=== PATIENT | female | born 1985 | race Caucasian/White ===

== ENCOUNTER 2017-01-21 07:48 | Inpatient (IN) | payer OTHER ==
[2017-01-21] MEDS ORDERED: BUTORPHANOL TARTRATE 1 MG/ML VIAL IVPB ONE (09:12)
[2017-01-21] MEDS ORDERED: SODIUM PHOSPHATE/NA BIPHOS 133 ML ENEMA PR ONE (09:14)
[2017-01-21] MEDS ORDERED: DEXTROSE 5%-LACTATED RINGERS 1,000 ML IV SCH (09:15)
[2017-01-21 09:22] LABS: BASOPHIL 0.8 % (0-2.0); EOSINOPHIL 0.8 % (0-4.5); MCH 31.7 pg (25.7-33.7); MCHC 34.4 g/dl (32.0-36.0); MEAN CELL VOLUME 91.9 fl (80-96); MEAN PLT VOLUME 8.7 fl (7.5-11.1); NEUTROPHILS 51.4 % (42.8-82.8); PLATELET COUNT 88 K/MM3 (134-434); RDW 15.5 % (11.6-15.6); WHITE BLOOD COUNT 4.7 K/mm3 (4.0-10.0)
[2017-01-21 09:34] LABS: INR 0.97 (0.82-1.09); PROTHROMBIN TIME (PATIENT) 10.7 SEC (9.98-11.88)
[2017-01-21 09:36] LABS: ACTIVATED PTT 31.6 SECONDS (26.9-34.4)
[2017-01-21] MEDS ORDERED: OXYTOCIN 15 UNITS/ LR 250 ML 250 ML IVPB SCH (09:50)
[2017-01-21 09:57] LABS: CALCIUM 8.7 mg/dL (8.5-10.1); CREATININE 0.7 mg/dL (0.55-1.02)
[2017-01-21 10:10] VITALS: BMI 32.7
[2017-01-21 10:12] LABS: COCKROFT - GAULT 137.5555
[2017-01-21 10:52] LABS: URIC ACID 5.5 mg/dL (2.6-7.2)
[2017-01-21 11:08] LABS: URINE APPEARANCE SLCLOUDY; URINE BILIRUBIN NEGATIVE (NEGATIVE); URINE COLOR YELLOW; URINE GLUCOSE (UA) NEGATIVE (NEGATIVE); URINE KETONE NEGATIVE (NEGATIVE); URINE LEUK ESTERASE NEGATIVE (NEGATIVE); URINE NITRITE NEGATIVE (NEGATIVE); URINE UROBILINOGEN NEGATIVE E.U./dl (0.2-1.0)
[2017-01-21 11:30] LABS: URINE BLOOD 3+ (NEGATIVE); URINE PROTEIN 3+ (NEGATIVE)
[2017-01-21 11:38] LABS: URINE BACTERIA RARE /hpf (NONE SEEN); URINE MUCUS RARE; URINE RBC 1 /hpf (0-3); URINE WBC 6 /hpf (3-5)
--- NOTE | 2017-01-21 12:08 | HP ---
Past Medical History - Primary Care Physician PCP:: Josiane Jin - Admission Chief Complaint: 31 yrs , 39.1 weeks admitted in early labor. onset Lp since 6.00AM History of Present Illness: PNC at 2, [facility] Wt gain 28 lbs work Up : B Pos, , Rpr nr, Hbsag neg, Rubella pos, Quantiferon neg, Gbs neg, Hiv neg, ,1 hr Gtt 94, NT screen, Modified sequential neg . .. MFM sono done for growth intial sono lo lying placenta, which resolved . 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 No: Migraine Cardiovascular: No: HTN, Murmur Pulmonary: No: Asthma Gastrointestinal: No: Gastritis Renal/: No: UTI Reproductive: No: Ectopic ...: 4 ...Para: 1 ...Term: 1 (09/10/07 7'8" ) ...: 0 ...Spon : 2 (11/19/12 & 09/10/15 1st trimester ) ...Induced : 0 ...Multiple Gestation: 0 ...LMP: 04/17/16 ... Weeks Gestation by Dates: 39.6 ...EDC by Dates: 01/22/17 ...EDC by Sono: 01/27/17 (39.1 weeks ) Heme/Onc: Yes: Anemia Infectious Disease: No: HIV, STD's Psych: No: Addictions, Bipolar, Panic Endocrine: No: Diabetes Mellitus, Hypothyroidism - Past Surgical History Past Surgical History: Yes: None Hx Myomectomy: No Hx Transabdominal Cerclage: No - Smoking History Smoking history: Never smoked Have you smoked in the past 12 months: No Aproximately how many cigarettes per day: 0 - Alcohol/Substance Use Hx Alcohol Use: No History of Substance Use: reports: None Home Medications - Allergies Allergies/Adverse Reactions: Allergies Allergy/AdvReac Type Severity Reaction Status Date / Time No Known Allergies Allergy Verified 09/10/15 07:46 - Home Medications Home Medications: Ambulatory Orders Pnv95/Iron Fum/Folic Acid [ Caplet] 1 tab PO DAILY 09/10/15 Physical Exam - Maternity Vital Signs: Vital Signs Temperature 98.9 F 01/21/17 10:00 Pulse Rate 55 L 01/21/17 10:00 Respiratory Rate 15 01/21/17 10:00 Blood Pressure 141/80 01/21/17 10:00 O2 Sat by Pulse Oximetry (%) Constitutional: Yes: Well Nourished, Calm, Mild Distress, Other (wt 162 lbs) Eyes: Yes: WNL HENT: Yes: WNL, Normocephalic Neck: Yes: WNL Cardiovascular: Yes: WNL Lungs: Clear to auscultation Breast(s): Yes: WNL - Abdominal Exam/OB Fundal Height: 40 Number of Fetuses: Single Presentation: Vertex (exam at 8.43 am) Contractions: Yes Regularity: Irregular Intensity: Mild (7-8 min) Monitor Mode: External Heart Rate (range): 150 Heart Rate Location: [facility] Category: I Accelerations: Uniform Decelerations: None - Vaginal Exam/OB Vaginal Bleediing: Bloody Show Speculum Exam: No Dilatation (cm): 3-4 Effacement (%): 80 Amniotic Membrane Status: Intact Presentation: Vertex/Position Station: -3 - Physical Exam Musculoskeletal: Yes: WNL Extremities: Yes: Delayed Capillary Refill (bilateral Varicose veins), Other Edema: Yes Edema: LLE: 1+, RLE: 1+ Deep Tendon Reflex Grade: Normal +2 ...Motor Strength: WNL Psychiatric: Yes: WNL, Alert, Oriented - Labs Lab Results: CBC, BMP 01/21/17 09:00 01/21/17 09:00 Selected Entries 01/21/17 09:54 Temperature 98.8 F Pulse Rate 57 L Blood Pressure 158/87 Blood Pressure 110 Mean Laboratory Tests 01/21/17 01/21/17 01/21/17 09:00 09:00 10:10 INR 0.97 PTT (Actin FS) 31.6 Uric Acid 5.5 GGT 21 AST 28 D ALT 19 D Urine Protein RPR Titer Nonreactive 01/21/17 10:35 INR PTT (Actin FS) Uric Acid GGT AST ALT Urine Protein 3+ H RPR Titer Problem List - Problems (1) 39 weeks gestation of Code(s): Z3A.39 - 39 WEEKS GESTATION OF (2) Labor established Code(s): [id number] - (3) Mild preeclampsia Code(s): O14.00 - MILD TO MODERATE PRE-ECLAMPSIA, UNSPECIFIED TRIMESTER Qualifiers: Trimester: third trimester Qualified Code(s): O14.03 - Mild to moderate pre-eclampsia, third trimester Assessment/Plan 31 yrs , 39.1 weeks, earky labor, noted to have mild elevation of BP, HELLP work up was drawn Proteinuria (3+),PlT count 88, ( 01/01/17 plt count 157 in the clinic ) Plan Pitocin augmentation Trial Vaginal delivery MgSo4 prn
--- NOTE | 2017-01-21 14:12 | PN ---
Progress Note, Labor Vaginal Exam #1 Labor Exam Date: 01/21/17 Labor Exam Time: 14:00 Heart Rate (range): 150 Dilatation: 7-8 Effacement (%): 90 Amniotic Membrane Status: Ruptured (AROM clear, small amount) Presentation: Vertex/Position Station: -2 Remarks: UC q 2-3 min fhr cat-1 c/o pain requests for pain meds Selected Entries 01/21/17 01/21/17 01/21/17 11:00 12:00 13:00 Pulse Rate 56 L 57 L Blood Pressure 138/80 140/82 155/81 14.00hr BP 140/79 rx stadol 2 mg iv stat given Vaginal Exam #2 Labor Exam Date: 01/21/17 Labor Exam Time: 15:20 Heart Rate (range): 120-130 Dilatation: 10cm Effacement (%): 100 Amniotic Membrane Status: Ruptured Presentation: Vertex/Position Station: +2 (+2/+3) Remarks: uc 2-3 min FHR cat-1 pt has urge to push Selected Entries 01/21/17 01/21/17 14:00 15:00 Temperature 98.3 F Pulse Rate 58 L 61 Blood Pressure 147/79 153/92
[2017-01-21] MEDS ORDERED: BENZOCAINE 28 GM HEMORRHOIDAL OINTMENT TP PRN (16:23)
[2017-01-21] MEDS ORDERED: BENZOCAINE 20% 57 GM BOTTLE TP PRN (16:23)
[2017-01-21] MEDS ORDERED: WITCH HAZEL 50% (TUCKS) 40 PAD/JAR PAD TP PRN (16:23)
[2017-01-21] MEDS ORDERED: BISACODYL 10 MG SUPP.RECT RC PRN (16:23)
[2017-01-21] MEDS ORDERED: METHYLERGONOVINE MALEATE 0.2 MG/1 ML AMP IM PRN (16:23)
[2017-01-21] MEDS ORDERED: LABETALOL HCL 200 MG TABLET (FP) PO PRN (16:29)
[2017-01-21] MEDS ORDERED: D5W-LR W/ 20 UNITS OXYTOCIN 1,000 ML IV SCH (16:30)
[2017-01-21] MEDS ORDERED: MISOPROSTOL 100 MCG TABLET NR ONE (16:45)
[2017-01-21] MEDS: oxyCODONE HCL 5 MG TABLET PO PRN ×2 (16:45→22:21)
--- NOTE | 2017-01-21 16:46 | PN ---
Delivery - Delivery Vaginal Delivery: Spontaneous (cord around neckx1.cord untangled before delivery of shoulder . after delivery of placenta , uterus atonic, Bimanual massage was given , Iv Pitocin 20 units in 1000 ml n saline continued, NC Cytotec 1000 mcg placed . bladder cathetrized 100 ml urine drained. episiotomy was sutured in layers with chr catgut #2/0 under local anesthesia. . pr exam done mucosa & sphincter was intact .) Type of Anesthesia: Local Episiotomy/Laceration: Midline EBL (cc): 500 Delivery, Single - Stages of Labor Date 1st Stage Initiatied: 01/21/17 Time 1st Stage Initiated: 06:00 Date 2nd Stage Initiated: 01/21/17 Time 2nd Stage Initiated: 15:20 Date of Delivery: 01/21/17 Time of Delivery: 15:43 Time Placenta Delivered: 15:46 Placenta: Yes: Spontaneous, Uterine Exploration - Condition of Leadite Worker/Commanding Officer Garage Present: No Infant Gender: Female Weight: 8 lb 1 oz Position: Left, OA Total Hours ROM (Hrs/Mins): - 1 Minute Total Score: 9 5 Minutes Total Score: 9 - Moyers Feeding Plan Initial Plan: Exclusive throughout hospitalization Remarks - Remarks Remarks: 31 yrs , 39.1 weeks admitted in labor .GBS neg. care at [address] [place] [address] . Pitocin Augmentation was started IV stadol 2 mg was given for labor analgesia. Mild preclempsia is diagnozed (BP 140-158 systolic, & 80-92 diastolic), urine protein 3+, Plt 88, rest of HELLP work up neg . Atonic PPH encountered Plan to give MgSo4 prophylaxis once vaginal bleeding is stable 5.00 pm ut firm, blood clot expressed out Puse 76/min, BP 132/78
[2017-01-21] MEDS ORDERED: CARBOPROST TROMETHAMINE 250 MCG/ML AMPUL IM ONE (17:50)
[2017-01-21] MEDS: CARBOPROST TROMETHAMINE 250 MCG/ML AMPUL IM ONE ×2 (17:50→20:51)
[2017-01-21] MEDS ORDERED: MAGNESIUM 4GM/H20 - 100 ML IVPB SCH (18:00)
[2017-01-21] MEDS ORDERED: BUTORPHANOL TARTRATE 1 MG/ML VIAL IVPUSH PRN (18:10)
[2017-01-21] MEDS ORDERED: MAGNESIUM SULFATE 20GM/500ML - 500 ML IVPB SCH (18:30)
[2017-01-21] MEDS: FERROUS SO4 325 MG TABLET (FP) PO SCH (18:43)
[2017-01-21] MEDS ORDERED: CARBOPROST TROMETHAMINE 250 MCG/ML AMPUL IM PRN (18:54)
[2017-01-21] MEDS ORDERED: OXYTOCIN IV ONE (19:00)
[2017-01-21] MEDS ORDERED: LACTATED RINGERS IV ONE (19:00)
[2017-01-21] MEDS ORDERED: DEXTROSE 5% IV ONE (19:00)
[2017-01-21] MEDS ORDERED: OXYTOCIN 10 UNIT/ML 10ML MDV IV SCH (19:00)
--- NOTE | 2017-01-21 19:07 | PN ---
Progress Note (short form) - Note Progress Note: 5.30 pm I was called by nurse to tell me she expressed out large blood clots twice 15 min apart, ut is becomng atonic I returned back ti L&D MEU was performed, uterus was emptied of blood clots Bimanual massage was continued . banks catheter was placed 5.50 pm IMHemabate 250 mcg was given. Uterus still was becoming atonic in between. so I made decision to insert BakrI Intrauterine balloon . preparation was made 6.10PM IVstadol 1 mg was given under ultrasound guide I attempted to insert bakri perineum cleaned with betadine sim's speculum was inserted ant lip cx was held with ring forcep, with another ring forcep Bakri balloon was advanced in uterus, upper segment was contracted I found difficult to advance balloon upto fundus .,It remained in the lower segment After multiple attempts , i decided to leave balloon in lower segment balloon was distended with 300 ml of Normal saline Vagina was packed with kerlex bakriballoon was connected to banks bag 6..30 Pm BP128/76, Pulse 82/min , O2 saturation 98% RS cta 700pm bp 120/76, pulse 70/min ut is firm upto umblicus blood only in the tubing banks out put approx [address] care in L&D Do not give MgSo4 infusion repeat stat cbc , bmp prophylactic iv Ancef x 3 doses Problem List - Problems (1) 39 weeks gestation of Code(s): Z3A.39 - 39 WEEKS GESTATION OF (2) Labor established Code(s): [id number] - (3) Mild preeclampsia Code(s): O14.00 - MILD TO MODERATE PRE-ECLAMPSIA, UNSPECIFIED TRIMESTER Qualifiers: Trimester: third trimester Qualified Code(s): O14.03 - Mild to moderate pre-eclampsia, third trimester
[2017-01-21] MEDS: CEFAZOLIN (PRE-DOCKED) 50 ML IVPB SCH (20:00)
[2017-01-21 20:23] LABS: BASOPHIL 0.2 % (0-2.0); MCH 30.5 pg (25.7-33.7); MCHC 32.9 g/dl (32.0-36.0); MEAN CELL VOLUME 92.6 fl (80-96); MEAN PLT VOLUME 9.4 fl (7.5-11.1); NEUTROPHILS 87.4 % (42.8-82.8); PLATELET COUNT 62 K/MM3 (134-434); RDW 15.9 % (11.6-15.6)
[2017-01-21 21:06] LABS: CALCIUM 7.1 mg/dL (8.5-10.1); COCKROFT - GAULT 120.36; CREATININE 0.8 mg/dL (0.55-1.02)
[2017-01-21] MEDS: ACETAMINOPHEN 325 MG TABLET (FP) PO PRN (22:21)
[2017-01-22] MEDS ORDERED: oxyCODONE HCL 5 MG TABLET PO PRN (01:21)
[2017-01-22] MEDS ORDERED: oxyCODONE HCL 5 MG TABLET PO ONE (01:30)
[2017-01-22] MEDS: CEFAZOLIN (PRE-DOCKED) 50 ML IVPB SCH ×2 (03:00→10:50)
[2017-01-22] MEDS ORDERED: D5W-LR W/ 20 UNITS OXYTOCIN 1,000 ML IV SCH (03:15)
--- NOTE | 2017-01-22 06:44 | PN ---
Progress Note (short form) - Note Progress Note: pt is stable, vss, anticipate cbc results
[2017-01-22 09:12] LABS: BASOPHIL 0.1 % (0-2.0); MCH 31.1 pg (25.7-33.7); MCHC 33.6 g/dl (32.0-36.0); MEAN CELL VOLUME 92.7 fl (80-96); MEAN PLT VOLUME 9.5 fl (7.5-11.1); NEUTROPHILS 78.9 % (42.8-82.8); PLATELET COUNT 56 K/MM3 (134-434); RDW 15.8 % (11.6-15.6)
[2017-01-22 09:24] LABS: MAGNESIUM 1.5 mg/dL (1.8-2.4)
[2017-01-22] MEDS: PRENATAL VITAMINS W/ FOLIC ACID TABLET (FP) PO SCH (10:00)
[2017-01-22] MEDS: FERROUS SO4 325 MG TABLET (FP) PO SCH ×2 (10:00→17:52)
--- NOTE | 2017-01-22 10:23 | PN ---
Post Progress Note - Subjective Subjective: no c/o dizziness, . feels weak, no c/o pain Post Day: 1 Type of Delivery: Vital Signs: Vital Signs Temperature 99.4 F 01/22/17 10:00 Pulse Rate 83 01/22/17 09:00 Respiratory Rate 20 01/22/17 09:00 Blood Pressure 114/43 01/22/17 09:00 O2 Sat by Pulse Oximetry (%) 100 01/21/17 22:25 Selected Entries 01/22/17 08:00 Temperature 99.3 F Breast Exam: Yes: Soft, Other (BF ). No: Engorged Uterus: Yes: Fundus Firm, Fundus @ umbilicus, Non-tender Lochia: Yes: Rubra Lochia, amount: Moderate (Bakri catheter drainage total since insertion at 6.30 pm 01/21 until 830am 01/22 is 120 ml ..Vaginal packing was not completely soaked.small vaginal clot seen.) Extremities: Yes: Calves non-tender (scd in situ ) Perineum: Yes: Episiotomy (healing . suture intact ) Activity: Other (pt has not been oob yet ) - Labs Labs: CBC WBC 12.0 K/mm3 (4.0-10.0) H 01/22/17 08:45 RBC 2.10 M/mm3 (3.60-5.2) L D 01/22/17 08:45 Hgb 6.5 GM/dL (10.7-15.3) L* D 01/22/17 08:45 Hct 19.5 % (32.4-45.2) L D 01/22/17 08:45 MCV 92.7 fl (80-96) 01/22/17 08:45 MCHC 33.6 g/dl (32.0-36.0) 01/22/17 08:45 RDW 15.8 % (11.6-15.6) H 01/22/17 08:45 Plt Count 56 K/MM3 (134-434) L 01/22/17 08:45 MPV 9.5 fl (7.5-11.1) 01/22/17 08:45 Neutrophils % 78.9 % (42.8-82.8) 01/22/17 08:45 Lymphocytes % 14.5 % (8-40) D 01/22/17 08:45 Monocytes % 6.5 % (3.8-10.2) 01/22/17 08:45 Eosinophils % 0.0 % (0-4.5) 01/22/17 08:45 Basophils % 0.1 % (0-2.0) 01/22/17 08:45 Retic Count 2.53 % (0.5-1.5) H 01/21/17 10:10 Haptoglobin < 10 mg/dL (34-200) L 01/21/17 10:10 Laboratory Tests 01/21/17 19:20 WBC 14.0 H D RBC 2.80 L D Hgb 8.5 L D Hct 25.9 L D Plt Count 62 L D Neutrophils % 87.4 H D Lymphocytes % 6.1 L D Other Findings, Remarks: RS cta banks out put 1415 ml Problem List - Problems (1) 39 weeks gestation of Code(s): Z3A.39 - 39 WEEKS GESTATION OF (2) Labor established Code(s): [id number] - (3) Mild preeclampsia Code(s): O14.00 - MILD TO MODERATE PRE-ECLAMPSIA, UNSPECIFIED TRIMESTER Qualifiers: Trimester: third trimester Qualified Code(s): O14.03 - Mild to moderate pre-eclampsia, third trimester Assessment/Plan ass .s/p vaginal delivery Atonic PPH s/p uterotonics cytotec., hemabate, 40 iu pitocin Bakri intrautrine ballon deflated & removed at 8.30AM . Anemia is noted she is receiving Ancef 1 gm for prophylaxis x 3 dose Plan Transfuse 2 units Pack Cells .
[2017-01-22] MEDS: ACETAMINOPHEN 325 MG TABLET (FP) PO PRN ×2 (10:25→21:11)
[2017-01-22] MEDS: CEFAZOLIN 1 GM in DEXTROSE 5%-WATER - 50 ML IVPB SCH (17:53)
[2017-01-22] MEDS ORDERED: CEFAZOLIN (PRE-DOCKED) 50 ML IVPB SCH (19:00)
[2017-01-22] MEDS: oxyCODONE HCL 5 MG TABLET PO PRN (21:08)
[2017-01-22] MEDS: SENNOSIDES/DOCUSATE COMBO (SENNA PLUS) TABLET (UD) PO PRN (21:11)
[2017-01-23] MEDS: CEFAZOLIN 1 GM in DEXTROSE 5%-WATER - 50 ML IVPB SCH ×2 (01:42→09:26)
--- NOTE | 2017-01-23 08:09 | PN ---
Progress Note (short form) - Note Progress Note: ppd 2 s/p , pp hemorrhage, recived blood transfusion, no excess vaginal bleeding CBC, BMP 01/22/17 08:45 01/21/17 19:20 Last Vital Signs Temp Pulse Resp BP Pulse Ox 98.5 F 96 H 18 137/90 100 01/23/17 06:14 01/23/17 06:14 01/23/17 06:14 01/23/17 06:14 01/21/17 22:25 abdomen soft, non tender, uterus firm lochia mild Ballon is out impression anemia , no active vaginal bleeding now plan cbc , revaluate
[2017-01-23] MEDS: FERROUS SO4 325 MG TABLET (FP) PO SCH ×2 (08:27→17:14)
[2017-01-23 08:47] LABS: BASOPHIL 0.4 % (0-2.0); EOSINOPHIL 0.8 % (0-4.5); MCH 31.2 pg (25.7-33.7); MCHC 35.1 g/dl (32.0-36.0); MEAN CELL VOLUME 88.8 fl (80-96); MEAN PLT VOLUME 8.3 fl (7.5-11.1); NEUTROPHILS 68.5 % (42.8-82.8); PLATELET COUNT 76 K/MM3 (134-434); RDW 15.7 % (11.6-15.6); WHITE BLOOD COUNT 9.2 K/mm3 (4.0-10.0)
[2017-01-23] MEDS ORDERED: CEFAZOLIN (PRE-DOCKED) 50 ML IVPB ONE (09:16)
[2017-01-23] MEDS: PRENATAL VITAMINS W/ FOLIC ACID TABLET (FP) PO SCH (09:24)
[2017-01-23] MEDS ORDERED: DIPHTH,PERTUSS(ACELL),TET 0.5 ML DISP.SYRIN IM ONE (10:00)
--- NOTE | 2017-01-23 16:18 | PN ---
Post Progress Note - Subjective Subjective: pt no c/o dizziness or black out no c/o cramps Post Day: 2 Type of Delivery: Vital Signs: Vital Signs Temperature 98.1 F 01/23/17 14:00 Pulse Rate 106 H 01/23/17 14:00 Respiratory Rate 20 01/23/17 14:00 Blood Pressure 100/56 01/23/17 14:00 O2 Sat by Pulse Oximetry (%) 100 01/21/17 22:25 Breast Exam: Yes: Soft, Other (BF ). No: Engorged Uterus: Yes: Fundus Firm, Fundus below umbilicus Lochia: Yes: Rubra Lochia, amount: Small Extremities: Yes: Calves non-tender Perineum: Yes: Episiotomy Activity: Ambulating - Labs Labs: CBC WBC 9.2 K/mm3 (4.0-10.0) 01/23/17 08:00 RBC 2.76 M/mm3 (3.60-5.2) L D 01/23/17 08:00 Hgb 8.6 GM/dL (10.7-15.3) L D 01/23/17 08:00 Hct 24.5 % (32.4-45.2) L D 01/23/17 08:00 MCV 88.8 fl (80-96) 01/23/17 08:00 MCHC 35.1 g/dl (32.0-36.0) 01/23/17 08:00 RDW 15.7 % (11.6-15.6) H 01/23/17 08:00 Plt Count 76 K/MM3 (134-434) L D 01/23/17 08:00 MPV 8.3 fl (7.5-11.1) D 01/23/17 08:00 Neutrophils % 68.5 % (42.8-82.8) 01/23/17 08:00 Lymphocytes % 22.7 % (8-40) D 01/23/17 08:00 Monocytes % 7.6 % (3.8-10.2) 01/23/17 08:00 Eosinophils % 0.8 % (0-4.5) D 01/23/17 08:00 Basophils % 0.4 % (0-2.0) D 01/23/17 08:00 Retic Count 2.53 % (0.5-1.5) H 01/21/17 10:10 Haptoglobin < 10 mg/dL (34-200) L 01/21/17 10:10 Problem List - Problems (1) 39 weeks gestation of Code(s): Z3A.39 - 39 WEEKS GESTATION OF (2) Labor established Code(s): [id number] - (3) Mild preeclampsia Code(s): O14.00 - MILD TO MODERATE PRE-ECLAMPSIA, UNSPECIFIED TRIMESTER Qualifiers: Trimester: third trimester Qualified Code(s): O14.03 - Mild to moderate pre-eclampsia, third trimester Assessment/Plan s/p Anemia, s/p 2 Pack cell units transfusion PPH , , pt stll weak, I plan to observe her for an extra day before discharging . will discharge today.
[2017-01-23] MEDS: SENNOSIDES/DOCUSATE COMBO (SENNA PLUS) TABLET (UD) PO PRN (21:24)
[2017-01-24] MEDS: FERROUS SO4 325 MG TABLET (FP) PO SCH (08:11)
[2017-01-24 08:48] LABS: BASOPHIL 0.5 % (0-2.0); EOSINOPHIL 1.4 % (0-4.5); MCH 31.2 pg (25.7-33.7); MCHC 34.4 g/dl (32.0-36.0); MEAN CELL VOLUME 90.7 fl (80-96); MEAN PLT VOLUME 7.9 fl (7.5-11.1); PLATELET COUNT 108 K/MM3 (134-434); RDW 16.1 % (11.6-15.6); WHITE BLOOD COUNT 8.2 K/mm3 (4.0-10.0)
[2017-01-24] MEDS: PRENATAL VITAMINS W/ FOLIC ACID TABLET (FP) PO SCH (09:33)
--- NOTE | 2017-01-24 10:33 | DS ---
Physical Exam-MA[employer]ACK [employer]T Vital Signs: Vital Signs Temperature 98.9 F 01/23/17 21:38 Pulse Rate 73 01/23/17 21:38 Respiratory Rate 20 01/23/17 21:38 Blood Pressure 122/55 01/23/17 21:38 O2 Sat by Pulse Oximetry (%) 100 01/21/17 22:25 Constitutional: Yes: Well Nourished Eyes: Yes: WNL HENT: Yes: WNL Neck: Yes: WNL Cardiovascular: Yes: WNL Respiratory: Yes: WNL Gastrointestinal: Yes: WNL, Other (bm done) ...Rectal Exam: Yes: WNL Renal/: Yes: Other (voiding without difficulty) ....Post : Yes: Uterus firm, Uterus non-tender, Moderate lochia rubra ( perinaum , episiotomy wound healing) Breast(s): Yes: WNL (breast feeding) Musculoskeletal: Yes: WNL Extremities: Yes: WNL. No: Calf Tenderness Edema: Yes Edema: LLE: 1+, RLE: 1+ Integumentary: Yes: WNL Neurological: Yes: WNL, Alert, Oriented ...Motor Strength: WNL Psychiatric: Yes: WNL, Alert, Oriented Labs: CBC, BMP 01/24/17 07:50 01/21/17 19:20 Delivery - Delivery Vaginal Delivery: Spontaneous (cord around neckx1.cord untangled before delivery of shoulder . after delivery of placenta , uterus atonic, Bimanual massage was given , Iv Pitocin 20 units in 1000 ml n saline continued, SD Cytotec 1000 mcg placed . bladder cathetrized 100 ml urine drained. episiotomy was sutured in layers with chr catgut #2/0 under local anesthesia. . 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 care at [address] [place] [address] . Pitocin Augmentation was started IV stadol 2 mg was given for labor analgesia. Mild preclempsia is diagnozed (BP 140-158 systolic, & 80-92 diastolic), urine protein 3+, Plt 88, rest of HELLP work up neg . Atonic PPH encountered Plan to give MgSo4 prophylaxis once vaginal bleeding is stable. 5.00 pm ut firm, blood clot expressed out Puse 76/min, BP 132/78 Pt had Atonic PPH she was given 40 iu Pitocin , IM Hemabate . Bakri Ballon was inserted .for 16 hrs MgSo4 infusion was not given as planned . Hgb down to 6.5 /19.5 on 01/22/17, Two units pack cell transfused Plt count improved to 108 on 01/24/15 cbc , hgb/hct 8.3/24 . pp urine protein 12 mg , BP were wnl . Pt is discharged on 01/24/17 . Anemia counselled Discharge Summary Reason For Visit: LABOR Current Active Problems PPH ( hemorrhage) (Acute) Condition: Stable - Instructions Diet, Activity, Other Instructions: Post Instructions DIET: Continue good diet high in protein, calcium, and iron rich foods. Drink at least eight (8) glasses of water daily in addition to other fluids. Ct Regular diet MEDICATIONS: Continue vitamins and iron as previously directed. Motrin and Tylenol may be taken for minor discomfort. ACTIVITY: Mild to moderate exercise may be started in two (2) weeks. Take frequent rest periods. Resume normal activity after six (6) week check up. WOUND CARE OF OPERATIVE SITE: Continue use of perineal bottle until vaginal discharge stops. Keep area clean. Shower daily. Keep abdominal wound dry. Report any drainage or redness to physician. Tub baths, tampons and douches are not permitted for [address] Breast feeding & or Bottle feeding BREAST CARE: (For those that are not breast feeding): If engorgement occurs: Wear tight fitting bra. Take Tylenol or Motrin for pain. Apply cold packs (ice in bags to each breast ) FAMILY PLANNING: There are many control alternatives to pursue and they should be discussed at your first office visit. You may resume sexual activity after your six (6) week check up. (Remember, breast feeding is not a contraceptive) NEXT PHYSICIAN APPOINTMENT: Be certain to call for a four (4) week appointment, unless otherwise directed. Repeat cbc on pp visit Call Clinic or got to Emergency Dept if you have any of the following: Heavy vaginal bleeding Painful urination Leg pain Unusual odor noted to vaginal bleeding High fever Red streaking noted on breast Referrals: Josiane Jin MD [Staff Physician] - Disposition: HOME - Home Medications Comprehensive Discharge Medication List: Ambulatory Orders Pnv95/Iron Fum/Folic Acid [ Caplet] 1 tab PO DAILY 09/10/15 Acetaminophen [Tylenol .Regular Strength -] 650 mg PO Q3H PRN #0 tablet Ferrous Sulfate [Feosol] 325 mg PO BIDWM #60 tab 01/23/17 Vitamins (Sjr) - 1 tab PO DAILY #30 tablet 01/23/17 Sennosides/Docusate Sodium [Pericolace -] 2 tablet PO HS PRN #30 tablet Witch Olimpia 50% (Tucks) [Tucks Pads -] 1 pad TP PRN PRN #0 pad 01/23/17
[2017-01-24 12:12] VITALS: BP 124/79; PULSE 72; TEMP 97.9
== END 2017-01-24 14:20 | disposition home or self-care (01) | DRG 542 ==
LOC: JDEL 07:48 → JLDR 08:45 → J3W 01-22 14:17
PROVIDERS: ADMIT Obstetrics & Gynecology; ATTEND Obstetrics & Gynecology
PROC: 0W8NXZZ Division of Female Perineum, External Approach (ICD-10-PCS; principal; 2017-01-21)
PROC: 10E0XZZ Delivery of Products of Conception, External Approach (ICD-10-PCS; 2017-01-21)
PROC: 10907ZC Drainage of Amniotic Fluid, Therapeutic from Products of Conception, Via Natural or Artificial Opening (ICD-10-PCS; 2017-01-21)
PROC: 0W3R7ZZ Control Bleeding in Genitourinary Tract, Via Natural or Artificial Opening (ICD-10-PCS; 2017-01-21)
PROC: 30233N1 Transfusion of Nonautologous Red Blood Cells into Peripheral Vein, Percutaneous Approach (ICD-10-PCS; 2017-01-22)
DX: O14.03 Mild to moderate pre-eclampsia, third trimester (principal); O69.1XX0 Labor and delivery complicated by cord around neck, with compression, not applicable or unspecified; O90.81 Anemia of the puerperium; O72.1 Other immediate postpartum hemorrhage; O99.12 Other diseases of the blood and blood-forming organs and certain disorders involving the immune mechanism complicating childbirth; D69.6 Thrombocytopenia, unspecified; Z3A.39 39 weeks gestation of pregnancy; Z37.0 Single live birth
CPT/HCPCS: 36415; 36430; 59409; 76856-TC; 80048; 81003; 81015; 82977; 83010; 83735; 84156; 84450; 84460; 84550; 85025; 85044; 85610; 85730; 86593; 86850; 86900; 86901; 86922; 90715; P9038; P9058

== ENCOUNTER 2018-12-21 08:40 | Inpatient (IN) | payer OTHER ==
[2018-12-21] MEDS ORDERED: OXYTOCIN 30 UNITS in 0.9% NS 30 UNIT/500 ML INFUS.BAG IVPB ONE (09:27)
[2018-12-21] MEDS ORDERED: PROMETHAZINE HCL 25 MG/1 ML VIAL IVPB ONE (09:27)
[2018-12-21] MEDS ORDERED: BUTORPHANOL TARTRATE 1 MG/ML VIAL IVPUSH ONE (09:27)
[2018-12-21] MEDS ORDERED: AMPICILLIN SODIUM 2 GM VIAL ONE (09:27)
[2018-12-21] MEDS ORDERED: OXYTOCIN 30 UNITS in 0.9% NS 30 UNIT/500 ML INFUS.BAG IVPB SCH (09:30)
--- NOTE | 2018-12-21 09:38 | HP ---
Past Medical History - Primary Care Physician PCP:: Reji Nye - Admission Chief Complaint: 39 weeks, labor, vaginal spotting History of Present Illness: 33 yo f 39 weeks, c/o vaginal spotting since last night with cramps on and off, cx 3 cm 70 vx -3 mi, fhr cat 1. 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 No: Migraine Heme/Onc: Yes: Anemia - Past Surgical History Past Surgical History: Yes: None Hx Myomectomy: No Hx Transabdominal Cerclage: No - Smoking History Smoking history: Never smoked Have you smoked in the past 12 months: No Aproximately how many cigarettes per day: 0 - Alcohol/Substance Use Hx Alcohol Use: No History of Substance Use: reports: None - Social History Usual Living Arrangement: Yes: With Spouse History of Recent Travel: No Home Medications - Allergies Allergies/Adverse Reactions: Allergies Allergy/AdvReac Type Severity Reaction Status Date / Time No Known Allergies Allergy Verified 12/21/18 11:18 - Home Medications Home Medications: Ambulatory Orders Vitamins (Sjr) - 1 tab PO DAILY #30 tablet 01/23/17 Review of Systems - Review of Systems Constitutional: reports: No Symptoms Eyes: reports: No Symptoms HENT: reports: No Symptoms Neck: reports: No Symptoms Cardiovascular: reports: No Symptoms Respiratory: reports: No Symptoms Gastrointestinal: reports: No Symptoms Genitourinary: reports: No Symptoms Breasts: reports: No Symptoms Reported Musculoskeletal: reports: No Symptoms Integumentary: reports: No Symptoms Neurological: reports: No Symptoms Endocrine: reports: No Symptoms Hematology/Lymphatic: reports: No Symptoms Psychiatric: reports: No Symptoms Physical Exam - Maternity Constitutional: Yes: Well Nourished, No Distress, Calm Eyes: Yes: WNL, Conjunctiva Clear, EOM Intact HENT: Yes: WNL, Atraumatic, Normocephalic Neck: Yes: WNL, Supple, Trachea Midline Cardiovascular: Yes: WNL, Regular Rate and Rhythm Breast(s): Yes: WNL - Abdominal Exam/OB Fundal Height: 40 Number of Fetuses: Single Presentation: Vertex Contractions: Yes Regularity: Irregular Intensity: Mild/Mod Monitor Mode: External Heart Rate Location: [facility] Category: I Accelerations: Uniform - Vaginal Exam/OB Vaginal Bleediing: Bloody Show Speculum Exam: No Amniotic Membrane Status: Bulging Presentation: Vertex/Position Station: -3 - Physical Exam Musculoskeletal: Yes: WNL Extremities: Yes: WNL Edema: Yes Edema: LLE: Trace, RLE: Trace Deep Tendon Reflex Grade: Normal +2 Psychiatric: Yes: WNL Hemorrhage Risk Assessment - Risk Factors Medium Risk Factors: Yes: None High Risk Factors: Yes: None Risk Score: 1 Risk Level: Medium Risk Problem List - Problems (1) with 39 completed weeks gestation Code(s): Z3A.39 - 39 WEEKS GESTATION OF (2) Labor established Code(s): [id number] - Assessment/Plan admit, fhm, irregular contraction,pitocin rba discussed , agreed
[2018-12-21] MEDS ORDERED: AMPICILLIN - 2 GM in SODIUM CHLORIDE 100 ML IVPB ONE (10:00)
[2018-12-21 10:21] LABS: BASO % 0.6 % (0-2.0); EOS % 0.8 % (0-4.5); HEMATOCRIT 35.2 % (32.4-45.2); HEMOGLOBIN 12.3 GM/dL (10.7-15.3); LYMPH % 30.4 % (8-40); MCH 32.8 pg (25.7-33.7); MEAN CELL VOLUME 93.8 fl (80-96); MEAN PLT VOLUME 7.9 fl (7.5-11.1); MONO % 10.4 % (3.8-10.2); NEUT % 57.8 % (42.8-82.8); PLATELET COUNT 156 K/MM3 (134-434); RBC 3.75 M/mm3 (3.60-5.2); RDW 13.4 % (11.6-15.6); WHITE BLOOD COUNT 5.5 K/mm3 (4.0-10.0)
[2018-12-21] MEDS: DEXTROSE 5%-LACTATED RINGERS 1,000 ML IV SCH ×2 (10:25→17:45)
[2018-12-21 10:36] LABS: INR 0.96 (0.83-1.09); PROTHROMBIN TIME (PATIENT) 11.3 SEC (9.7-13.0)
[2018-12-21 10:39] LABS: ACTIVATED PTT 27.9 SECONDS (25.2-36.5)
[2018-12-21 10:45] LABS: ANION GAP 8 MMOL/L (8-16); BLOOD UREA NITROGEN 7 mg/dL (7-18); CALCIUM 8.8 mg/dL (8.5-10.1); CHLORIDE 108 mmol/L (98-107); CO2 20 mmol/L (21-32); CREATININE 0.4 mg/dL (0.55-1.3); GLUCOSE,RANDOM 75 mg/dL (74-106); POTASSIUM 3.8 mmol/L (3.5-5.1); SODIUM 136 mmol/L (136-145)
[2018-12-21 11:14] VITALS: BMI 34.1
--- NOTE | 2018-12-21 13:44 | PN ---
Progress Note (short form) - Note Progress Note: cx 2 4 cm, 75 vx -3, membrane bulging, fhr cat 1. irregular contraction
[2018-12-21] MEDS: AMPICILLIN - 1 GM in SODIUM CHLORIDE 100 ML IVPB SCH ×3 (14:05→21:47)
[2018-12-21] MEDS ORDERED: AMPICILLIN SODIUM 1 GM VIAL ONE ×2 (17:32→21:44)
[2018-12-21] MEDS ORDERED: SODIUM CHLORIDE 100 ML IVPB ONE (17:32)
[2018-12-21] MEDS ORDERED: BUTORPHANOL TARTRATE 2 MG/ML VIAL ONE ×2 (18:01→20:15)
[2018-12-21] MEDS ORDERED: PROMETHAZINE HCL 25 MG/1 ML VIAL ONE ×2 (18:01→20:15)
[2018-12-21] MEDS ORDERED: BUTORPHANOL TARTRATE 1 MG/ML VIAL IVPB ONE (18:30)
--- NOTE | 2018-12-21 19:13 | PN ---
Progress Note (short form) - Note Progress Note: cx 6 cm 100 vx -2 arom clear , fhr cat 1, regular contraction Problem List - Problems (1) with 39 completed weeks gestation Code(s): Z3A.39 - 39 WEEKS GESTATION OF (2) Labor established Code(s): [id number] -
[2018-12-21] MEDS ORDERED: LIDO 2%/EPI 1:200000 PRESRVFRE (20 ML SDVIAL) ONE (20:15)
[2018-12-21] MEDS ORDERED: OXYTOCIN 20 UNITS in 0.9% NS 20 UNIT/1,000 ML INFUS.BAG IV ONE ×2 (20:17→23:54)
[2018-12-21] MEDS ORDERED: LIDOCAINE HCL 1% PRESERVATIVE FREE - 30ML VIAL ONE (22:06)
[2018-12-21] MEDS ORDERED: BISACODYL 10 MG SUPP.RECT RC PRN (22:44)
[2018-12-21] MEDS ORDERED: BENZOCAINE 28 GM HEMORRHOIDAL OINTMENT TP PRN (22:44)
[2018-12-21] MEDS ORDERED: METHYLERGONOVINE MALEATE 0.2 MG/1 ML AMP IM PRN (22:44)
[2018-12-21] MEDS ORDERED: WITCH HAZEL 50% (TUCKS) 40 PAD/JAR PAD TP PRN (22:44)
[2018-12-21] MEDS ORDERED: ACETAMINOPHEN 325 MG TABLET (FP) PO PRN (22:44)
[2018-12-21] MEDS ORDERED: BENZOCAINE 20% 57 GM BOTTLE TP PRN (22:44)
[2018-12-21] MEDS ORDERED: D5W-LR W/ 20 UNITS OXYTOCIN 1,000 ML IV SCH (22:45)
[2018-12-21 22:59] LABS: ARTERIAL BLD GAS O2 SATURATION 23.5 % (95-98); ARTERIAL BLOOD GAS BASE EXCESS -4.3 meq/l (-2-2); ARTERIAL BLOOD GAS PCO2 62.3 mmHg (35-45); ARTERIAL BLOOD GAS pH 7.22 (7.35-7.45)
[2018-12-21 23:05] LABS: VENOUS PC02 38.9 mmHg (41-51); VENOUS PH 7.34 (7.31-7.41); VENOUS PO2 43.7 mmHg (30-40)
[2018-12-21 23:11] LABS: ARTERIAL BLOOD GAS PO2 17.3 mmHg (80-105)
[2018-12-22] MEDS: OXYTOCIN 20 UNITS in 0.9% NS 20 UNIT/1,000 ML INFUS.BAG IV SCH ×2 (00:45→08:59)
[2018-12-22] MEDS: IBUPROFEN 600 MG TABLET (FP) PO PRN ×2 (01:10→22:28)
[2018-12-22 08:11] LABS: BASO % 0.5 % (0-2.0); EOS % 0.1 % (0-4.5); HEMATOCRIT 32.7 % (32.4-45.2); HEMOGLOBIN 11.5 GM/dL (10.7-15.3); LYMPH % 20.9 % (8-40); MCH 32.7 pg (25.7-33.7); MCHC 35.3 g/dl (32.0-36.0); MEAN CELL VOLUME 92.7 fl (80-96); MEAN PLT VOLUME 7.9 fl (7.5-11.1); MONO % 10.1 % (3.8-10.2); NEUT % 68.4 % (42.8-82.8); PLATELET COUNT 142 K/MM3 (134-434); RBC 3.53 M/mm3 (3.60-5.2); RDW 12.9 % (11.6-15.6); WHITE BLOOD COUNT 9.4 K/mm3 (4.0-10.0)
[2018-12-22] MEDS: FERROUS SO4 325 MG TABLET (FP) PO SCH ×2 (09:38→17:59)
[2018-12-22] MEDS: PRENATAL VITAMINS W/ FOLIC ACID TABLET (FP) PO SCH (09:38)
--- NOTE | 2018-12-22 11:12 | PN ---
Progress Note (short form) - Note Progress Note: ppd1 doing well, no c/o , voids ok CBC, BMP 12/22/18 07:30 12/21/18 09:45 abdomen soft, uterus firm lochia mild no calf tenderness no edema plan ambulate, for d/c home in am Problem List - Problems (1) with 39 completed weeks gestation Code(s): Z3A.39 - 39 WEEKS GESTATION OF (2) Labor established Code(s): [id number] -
[2018-12-22] MEDS ORDERED: SENNOSIDES/DOCUSATE COMBO (SENNA PLUS) TABLET (UD) PO PRN (22:00)
[2018-12-23 08:29] VITALS: BP 103/65; PULSE 64; TEMP 98.2
[2018-12-23] MEDS: PRENATAL VITAMINS W/ FOLIC ACID TABLET (FP) PO SCH (09:04)
[2018-12-23] MEDS: FERROUS SO4 325 MG TABLET (FP) PO SCH (09:05)
--- NOTE | 2018-12-23 09:33 | DS ---
Physical Examination Vital Signs: Vital Signs Temperature 98.2 F 12/23/18 08:24 Pulse Rate 64 12/23/18 08:24 Respiratory Rate 20 12/23/18 08:24 Blood Pressure 103/65 12/23/18 08:24 O2 Sat by Pulse Oximetry (%) 100 12/21/18 23:30 Constitutional: Yes: Well Nourished, No Distress, Calm Eyes: Yes: WNL, Conjunctiva Clear, EOM Intact HENT: Yes: WNL, Atraumatic, Normocephalic Neck: Yes: WNL, Supple, Trachea Midline Cardiovascular: Yes: WNL, Regular Rate and Rhythm Respiratory: Yes: WNL, Regular, CTA Bilaterally Gastrointestinal: Yes: WNL, Normal Bowel Sounds Musculoskeletal: Yes: WNL Extremities: Yes: WNL Edema: No Integumentary: Yes: WNL Neurological: Yes: WNL, Alert, Oriented ...Motor Strength: WNL Psychiatric: Yes: WNL Labs: CBC, BMP 12/22/18 07:30 12/21/18 09:45 Discharge Summary Reason For Visit: LABOR ADMISSION Current Active Problems Labor established (Acute) with 39 completed weeks gestation (Acute) Procedures: Principal: Hospital Course: Pt presented in labor She had an uncomplicated She met all milestones She was discharged home on PPD#2 Debra. MD Abdirahman Condition: Stable - Instructions Diet, Activity, Other Instructions: Regular Diet Follow up in 4-6 weeks Referrals: Reji Nye MD [Staff Physician] - Disposition: HOME - Home Medications Comprehensive Discharge Medication List: Ambulatory Orders Vitamins (Sjr) - 1 tab PO DAILY #30 tablet 01/23/17 Ibuprofen [Motrin -] 600 mg PO QID PRN #28 tablet 12/23/18
== END 2018-12-23 13:10 | disposition home or self-care (01) | DRG 560 ==
LOC: JDEL 08:40 → JLDR 09:20 → J3W 12-22 00:50
PROVIDERS: ADMIT Obstetrics & Gynecology; ATTEND Obstetrics & Gynecology
PROC: 10E0XZZ Delivery of Products of Conception, External Approach (ICD-10-PCS; principal; 2018-12-21)
DX: O70.0 First degree perineal laceration during delivery (principal); Z3A.39 39 weeks gestation of pregnancy; Z37.0 Single live birth
CPT/HCPCS: 36415; 36600; 59409; 80048; 82803; 85025; 85610; 85730; 86593; 86850; 86900; 86901

== ENCOUNTER 2021-06-14 04:35 | Day surgery (SDC) | payer OTHER ==
[2021-06-12 19:54] VITALS: BMI 28.3
[2021-06-14] MEDS ORDERED: PROPOFOL 20 ML ONE (10:55)
[2021-06-14] MEDS ORDERED: MIDAZOLAM HCL 2 MG/2 ML SINGLE DOSE VIAL ONE (10:56)
[2021-06-14] MEDS ORDERED: LACTATED RINGERS SOLUTION 1,000 ML IV SCH (12:15)
[2021-06-14] MEDS ORDERED: ONDANSETRON 4 MG/2 ML VIAL IVPUSH PRN (12:15)
[2021-06-14] MEDS ORDERED: PROMETHAZINE HCL 25 MG/1 ML VIAL IVPUSH PRN (12:15)
[2021-06-14] MEDS ORDERED: oxyCODONE HCL 5 MG TABLET PO PRN ×2 (12:15)
[2021-06-14 13:46] VITALS: TEMP 97.8
[2021-06-14 14:29] VITALS: BP 110/50; PULSE 55
== END 2021-06-14 14:10 | disposition home or self-care (01) ==
LOC: JASU-SURG 04:35
PROVIDERS: ATTEND Obstetrics & Gynecology
PROC: 0UC98ZZ Extirpation of Matter from Uterus, Via Natural or Artificial Opening Endoscopic (ICD-10-PCS; principal; 2021-06-14 10:30)
PROC: 0UDB8ZZ Extraction of Endometrium, Via Natural or Artificial Opening Endoscopic (ICD-10-PCS; 2021-06-14 10:30)
DX: T83.89XA Other specified complication of genitourinary prosthetic devices, implants and grafts, initial encounter (principal)
CPT/HCPCS: 88300-TC; 94760

== ENCOUNTER 2021-09-09 04:46 | Day surgery (SDC) | payer OTHER ==
[2021-09-04 09:13] VITALS: BMI 29.5
[2021-09-09] MEDS ORDERED: SUCCINYLCHOLINE CHLORIDE 200 MG/10 ML SYRINGE ONE (14:00)
[2021-09-09] MEDS ORDERED: PROPOFOL 20 ML ONE ×2 (14:00)
[2021-09-09] MEDS ORDERED: MIDAZOLAM HCL 2 MG/2 ML SINGLE DOSE VIAL ONE (14:01)
[2021-09-09] MEDS ORDERED: ROCURONIUM BROMIDE 50 MG/5 ML SYRINGE ONE (14:04)
[2021-09-09] MEDS ORDERED: KETOROLAC TROMETHAMINE 30 MG/1 ML VIAL ONE (14:26)
[2021-09-09] MEDS ORDERED: DEXAMETHASONE SOD PHOSPHATE 4 MG/1 ML VIAL ONE (14:26)
[2021-09-09] MEDS ORDERED: BUPIVACAINE HCL/PF 0.5% (5 MG/ML) 30 ML VIAL IJ ONE (14:35)
[2021-09-09] MEDS ORDERED: NEOSTIGMINE METHYLSULFATE 0.5 MG/ML - 10 ML MDV ONE (14:56)
[2021-09-09] MEDS ORDERED: GLYCOPYRROLATE 0.2 MG/1 ML VIAL ONE (14:56)
[2021-09-09] MEDS ORDERED: ONDANSETRON 4 MG/2 ML VIAL IVPUSH PRN (15:11)
[2021-09-09] MEDS ORDERED: oxyCODONE HCL 5 MG TABLET PO PRN (15:11)
[2021-09-09] MEDS ORDERED: LACTATED RINGERS SOLUTION 1,000 ML IV SCH (15:15)
[2021-09-09 18:00] VITALS: BP 109/69; PULSE 72; TEMP 98
== END 2021-09-09 17:55 | disposition home or self-care (01) ==
LOC: JASU-SURG 04:46
PROVIDERS: ATTEND Obstetrics & Gynecology
PROC: 0UT74ZZ Resection of Bilateral Fallopian Tubes, Percutaneous Endoscopic Approach (ICD-10-PCS; principal; 2021-09-09 13:30)
DX: Z30.2 Encounter for sterilization (principal)
CPT/HCPCS: 81025; 88302-TC; 94760